=== PATIENT | male | born 1980 | race African-American/Black ===

== ENCOUNTER 2017-10-22 20:03 | Emergency (ER) | payer BC, OTHER ==
[~2017-10-22] VITALS: Ht 177.8 cm; Wt 83.9 kg
[2017-10-22] MEDS ORDERED: LIORESAL 10 MG10 MG PO (21:40)
[2017-10-22 22:03] VITALS: BP 160/73
== END 2017-10-22 22:04 | disposition home or self-care (01) ==
LOC: ER 20:03
DX: S86.912A Strain of unspecified muscle(s) and tendon(s) at lower leg level, left leg, initial encounter (principal); X58.XXXA Exposure to other specified factors, initial encounter; Y93.67 Activity, basketball; Y92.89 Other specified places as the place of occurrence of the external cause; Y99.8 Other external cause status